=== PATIENT | male | born 1990 | race African-American/Black ===

== ENCOUNTER 2021-03-07 16:33 | Emergency (ER) | payer OTHER ==
[~2021-03-07] VITALS: Ht 177.8 cm; Wt 88.5 kg
[2021-03-07] MEDS ORDERED: ZYRTEC10 MG PO (19:13)
[2021-03-07] MEDS ORDERED: NAPROXEN375 MG PO (19:13)
[2021-03-07] MEDS ORDERED: MEDROLPACK PO (19:13)
== END 2021-03-07 20:21 | disposition home or self-care (01) ==
LOC: ER 16:33
DX: K11.21 Acute sialoadenitis (principal); R09.82 Postnasal drip; M54.2 Cervicalgia